=== PATIENT | female | born 1950 | race Hispanic/Latino ===

== ENCOUNTER 2017-01-09 06:18 | Inpatient (IN) | payer MEDICARE, OTHER ==
[2017-01-04 10:15] LABS: Basophils % (Auto) 1.2 % (0.0-1.8); Eosinophils % (Auto) 7.2 % (0.0-4.3); Hematocrit 44.4 % (30.3-42.9); Mean Corpuscular HGB Conc 34 % (30-34); Mean Corpuscular Hemoglobin 33 pg (28-32); Mean Corpuscular Volume 96 fl (79-97); Platelet Count 216 K/mm3 (140-440); Red Blood Count 4.61 M/mm3 (3.65-5.03); Red Cell Distribution Width 13.7 % (13.2-15.2); White Blood Count 6.8 K/mm3 (4.5-11.0)
--- NOTE | 2017-01-04 10:20 | Anesthesia Consultation ---
Anesthesia Consult and Med Hx Date of service: 01/04/17 - Airway Anesthetic Teeth Evaluation: Good, Partials (doesn't come out per patient) ROM Head & Neck: Adequate Mental/Hyoid Distance: Adequate Mallampati Class: Class II Intubation Access Assessment: Probably Good - Pulmonary Exam CTA: Yes - Cardiac Exam Cardiac Exam: RRR - Pre-Operative Health Status ASA Pre-Surgery Classification: ASA3 Proposed Anesthetic Plan: General - Pulmonary Hx Smoking: Yes (former, quit 10 yrs ago, 1ppd x 40 yrs) Hx Asthma: No COPD: No Hx Sleep Apnea: No - Cardiovascular System Hx Hypertension: Yes (EF normal) Hx Heart Attack/AMI: Yes (1998, angio gram negative per patient) - Central Nervous System Hx Seizures: No CVA: No Hx Psychiatric Problems: No - Endocrine Hx Renal Disease: No Hx Non-Insulin Dependent Diabetes: Yes (pre-diabtes, no meds) Hx Thyroid Disease: Yes Hx Hypothyroidism: Yes - Other Systems Hx Alcohol Use: Yes (occas) Hx Cancer: No Hx Obesity: No - Additional Comments Anesthesia Medical History Comments: Patient reports after cataract suregry she felt limp and lethargic. Does not know the cause. Cardiac clearance on chart.
[2017-01-04 10:25] LABS: INR 0.98 (0.87-1.13)
[2017-01-04 10:34] LABS: Anion Gap 18 mmol/L; BUN/Creatinine Ratio 16.25; Blood Urea Nitrogen 13 mg/dL (7-17); Calcium 9.1 mg/dL (8.4-10.2); Carbon Dioxide 26 mmol/L (22-30); Chloride 104.8 mmol/L (98-107); Glucose 66 mg/dL (65-100); Potassium 4.8 mmol/L (3.6-5.0); Sodium 144 mmol/L (137-145)
[~2017-01-09 06:18] MED LIST: ANCEF/STERILE WATER 2 GM/20 ML 2 GM/20 ML SYRINGE IV NR; NACL 0.9% 1000 ML 1,000 ML IV SCH; PEPCID PO NR; VERSED IV NR
[2017-01-09] MEDS ORDERED: ZEMURON IV ONE (07:20)
[2017-01-09] MEDS ORDERED: XYLOCAINE MPF 2% ONE (07:20)
[2017-01-09] MEDS ORDERED: SUBLIMAZE ONE (07:20)
[2017-01-09] MEDS ORDERED: DIPRIVAN 10 MG/ML IV ONE ×2 (07:24→09:15)
[2017-01-09] MEDS ORDERED: PROTAMINE SULFATE ONE (07:33)
[2017-01-09] MEDS ORDERED: NACL 0.9% 250ML 250 ML ONE (07:34)
[2017-01-09] MEDS ORDERED: MARCAINE 0.5% 30 ML INFILTRATI ONE (07:34)
[2017-01-09] MEDS ORDERED: HEPARIN 10,000 UNITS/10 ML ONE (07:34)
--- NOTE | 2017-01-09 08:07 | Anesthesia Day of Surgery ---
Anesthesia Day of Surgery - Day of Surgery Patient Examined: Yes Patient H&P Reviewed: Yes Patient is NPO: Yes
[2017-01-09] MEDS ORDERED: BENADRYL ONE (08:13)
[2017-01-09] MEDS ORDERED: DECADRON ONE (08:13)
--- NOTE | 2017-01-09 08:49 | Admit Criteria Form ---
Admission Criteria Documentation: AMBULATORY SURGERY EXCEPTION CRITERIA Ambulatory Surgery Exception Criteria ( Place 'X' for any and all applicable criteria): Surgery or procedure performed on ambulatory basis may require inpatient stay for[A] ANY ONE of the following(1)(2)(3)(4)(5)(6)(7)(8)(9): [X] I. A preoperative situation, condition, or finding that warrants inpatient stay as indicated by ANY ONE of the following: [] a) Inpatient care needed because of severity of a disease or condition rather than the surgery (eg, severe cardiac or respiratory disease, severe infection) (15) (16 ) (17) (18) [] b) Emergent procedure (eg, angioplasty for acute ischemia)(19) [] c) Complex surgical approach or situation as indicated by ANY ONE of the following(3): [] i) Open approach needed instead of usual endoscopic, transcatheter, or other less invasive procedure [] ii) Difficult approach because of previous operation [] iii) Airway monitoring required after open neck procedures(20)(21) [] iv) Large mass requiring unusually extensive dissection [] v) Additional complicating feature requiring inpatient care (eg, drain management)(22(23): [X] d) Major surgery in a pt with high anesthetic risk as indicated by ANY ONE of the following (2)(3)(5)(7)(8): [X] i) ASA risk class III or higher (severe systemic disease impairing function) [D] [] ii) Advanced age (eg, older than 85 years)(14)(24) [] iii) Symptomatic heart failure(25) [] iv) Symptomatic asthma or COPD(8)(21) [] v) Morbid obesity with hemodynamic or respiratory problems(20)( 21)(26)(27) [] vi) Obstructive sleep apnea(20)(21) [] vii) Former premature infants who are younger than 60 weeks [] viii) High risk for severe postoperative abnormalities (eg, severe postoperative hypocalcemia after parathyroidectomy for severe hyperparathyroidism)(27)( 28) [] ix) Unstable angina(25) [] e) Drug-related risk requiring inpatient stay as indicated by ANY ONE of the following(5)(10)(14)(32)(33) [] i) Procedure requires discontinuing drugs or other therapy (eg , antiarrhythmic medication, antiseizure medication), which necessitates inpatient observation or treatment.(18)(31) [] ii) Major surgery and high risk drug use as indicated by ANY ONE of the following: [] 1) Active abuse of cocaine or similar drug [] 2) Monoamine oxidase inhibitor use [] 3) Other drug identified as posing risk [] f) Inadequate outpatient care situation as indicated by ANY ONE of the following(5)(10)(14)(32)(33) [] i) Patient lives remote from medical facility and procedure has urgent complication potential, and temporary nearby residence cannot be arranged [] ii) Patient will have postprocedure incapacitation and inadequate assistance at home, or alternative level of care cannot be arranged. [] iii) Patient will have long general anesthesia or procedure side effect resolution time, and competent person to stay with patient on first postoperative night at home or alternative level of care cannot be arranged. []iv) Other inadequate outpatient situation that cannot be handled by other means [] II. A perioperative event, condition, or finding that warrants inpatient stay as indicated by ANY ONE of the following (1)(2)(3): [] a) Inadequate physiologic recovery: cardiovascular, respiratory, or hemodynamic status not normal or near preoperative baseline(18) [] b) Hemodynamic instability [] c) Patient not alert with near normal or baseline mental status [] d) Temperature not normal or as expected and not appropriate for outpatient treatment of condition [] e) Ambulatory or appropriate activity level status not yet achieved post procedure [E](34)(35)(36) [] f) Operative site not appropriate (eg, unexpected or excessive drainage or bleeding) [] g) Postoperative effects not resolved or adequately managed (eg, significant pain or vomiting not appropriate for outpatient or next level of care)(10)(12) [] h) Complicating features requiring inpatient care as indicated by ANY ONE of the following(37): [] i) Severe complications of procedure (eg, bowel injury, airway compromise, vascular injury,severe hemorrhage) [] ii) Extensive (eg, dissection far beyond usual scope of procedure ) or prolonged (eg, 120 minutes beyond usual) surgery needed requiring inpatient postoperative care [] iii) Conversion to an open or complex procedure that requires inpatient care (eg, open vs laparoscopic cholecystectomy, abdominal vs vaginal hysterectomy)(38) [] iv) Comorbid condition or test result identified during or post procedure that requires inpatient care (7) [] v) Malignant hyperthermia(30) [] vi) Other complicating feature requiring inpatient care(22)(23) Inpatient stay may be needed until ALL of the following are present (1)(2)(3)(4) (5)(6)(10)(14)(33)(40): []a) Physiologic recovery: cardiovascular, respiratory, and hemodynamic status normal or near preoperative baseline []b) Hemodynamic stability []c) Patient alert, with near normal or baseline mental status []d) Temperature appropriate: patient afebrile or temperature appropriate for outpt treatment of condition []e) Activity level appropriate: ambulatory or appropriate activity level post procedure []f) Operative site appropriate as indicated by ALL of the following: []i) Site dry or with expected drainage []ii) Any blood noted is as expected for procedure. []g) Postoperative effects resolved or managed as indicated by ALL of the following: []i) Pain management appropriate for outpatient (or next level of) care(10) []ii) Minimal nausea and vomiting: if present, successfully treated with oral medication(12) []iii) Headache, dizziness, or drowsiness (if present) are mild. []h) Voiding status acceptable as indicated by ANY ONE of the following: []i) Voiding spontaneously []ii) No voiding but instructions given for follow-up in 6 to 8 hours []iii) Urinary catheter in place, and instructions given for follow-up []i) Complicating features requiring inpatient care manageable at a lower level of care(37) []j) Comorbid conditions manageable at a lower level of care(37) The original [employer] content created by [employer] has been revised. The portions of the content which have been revised are identified through the use of italic text or in bold, and [facility] [employer] has neither reviewed nor approved the modified material. All other unmodified content is copyright [employer]. Please see references footnoted in the original [employer] edition 2016 Admission Criteria Met: Yes
[2017-01-09] MEDS ORDERED: MARCAINE 0.5% INFILTRATI ONE (08:54)
[2017-01-09] MEDS ORDERED: NACL 0.9% IR ONE (08:54)
[2017-01-09] MEDS ORDERED: OMNIPAQUE IR ONE (08:54)
[2017-01-09] MEDS ORDERED: NACL 0.9% 1000 ML IR ONE (08:54)
[2017-01-09] MEDS ORDERED: OMNIPAQUE (240 MG) IV ONE (08:54)
[2017-01-09] MEDS ORDERED: HEPARIN 10,000 UNITS/10 ML 4,000 UNIT in NACL 0.9% 1000 ML 1,000 ML IR ONE (08:54)
[2017-01-09] MEDS ORDERED: ePHEDrine SULFATE ONE (08:55)
[2017-01-09] MEDS ORDERED: NACL 0.9% 1000 ML 2,000 ML ONE (09:38)
[2017-01-09] MEDS ORDERED: NEO SYNEPHRINE/NS Syringe(OR USE) IV ONE (10:00)
[2017-01-09] MEDS ORDERED: HYDROGEN PEROXIDE ONE (10:01)
[2017-01-09] MEDS ORDERED: NORMODYNE IV ONE (10:15)
[2017-01-09] MEDS ORDERED: BLOXIVERZ ONE (10:15)
[2017-01-09] MEDS ORDERED: BREVIBLOC IV ONE (10:15)
[2017-01-09] MEDS ORDERED: ROBINUL ONE (10:15)
[2017-01-09] MEDS ORDERED: ZOFRAN ONE (10:15)
[2017-01-09] MEDS ORDERED: MORPHINE IV PRN ×2 (10:30)
[2017-01-09] MEDS ORDERED: NARCAN 0.4 MG/1 ML IV PRN (10:30)
[2017-01-09] MEDS ORDERED: NORCO 5/325 PO PRN (10:30)
[2017-01-09] MEDS ORDERED: DILAUDID ONE (10:33)
[2017-01-09] MEDS: DILAUDID IV PRN ×3 (10:35→11:05)
--- NOTE | 2017-01-09 10:51 | Operative Report ---
Operative Report Operative Report: Date of Procedure: 01/09/2017 Pre-operative Diagnosis: Penetrating Ulcer with Aortic Pseudoaneurysm Post-operative Diagnosis: Same Procedure(s): 1. Bilateral Ultrasound-Guided Access Common Femoral Arteries 2. Bilateral Femoral Artery Exposure 3. Bilateral Catheters and the Aorta 4. Endovascular Repair of Abdominal Aortic Aneurysm with: 1. Endologix 22 x 80 AFX2 Main Body 5. Radiologic Supervision with Interposition Surgeon: Sherwin Waldrop M.D. Frame Stripper: Omaira Domínguez M.D. Second Frame Stripper: Kevin Pryor PA-C Anesthesia: Gen. Endotracheal Anesthesia EBL: 100 mL Counts: Correct Complications: None Condition: Stable Findings: Successful repair of abdominal aortic pseudoaneurysm with no evidence of endoleak at the completion of the case. Specimen: None Indication: The patient is a 66-year-old female with a history of hypertension who had a CT scan performed for abdominal pain. She was found to have a penetrating ulcer in her distal infrarenal aorta with a 3 cm pseudoaneurysm. Given the size of the pseudoaneurysm and the complaints of pain and tenderness on examination was felt that she would benefit from endovascular repair. She was given the risks, benefits, and alternative procedures and consented to procedure. Description of Procedure: The patient was brought to the operating room and laid in supine position. After general endotracheal anesthesia was achieved with protamine and draped in normal sterile fashion. Ultrasound was used to identify the left common femoral artery and a small stab incision was made. A hemostat was then used to bluntly dissect down to the anterior surface of the left common femoral artery using ultrasound guidance. Then with ultrasound guidance micropuncture technique was used to access the artery and a Bentson wire was advanced into the aorta under fluoroscopy. A 7 [place]e sheath was then placed by Seldinger technique. I didn't identify the right common femoral artery using ultrasound and made a small stab incision. A hemostat was used to bluntly dissect down to the anterior surface of the artery wall using ultrasound. Again using ultrasound guidance; puncture technique was used to enter the right common femoral artery and a Bentson wire was advanced to the aorta under fluoroscopy. The 7 [place]e dilator was then used to dilate the tract and then the pre-close technique was used placing a Perclose device at the 2:00 and 10:00 positions. I then advanced an 8 [place]e sheath by Seldinger technique. At this point the patient was systemically heparinized with 5000 units of heparin IV. A vertebral catheter was advanced over the Bentson in the right groin and then the Bentson wire was exchanged for a Lunderquist wire. The 8 [place]e sheath was removed and the 19 [place]e AFX introducer sheath was advanced to just above the bifurcation using Seldinger technique. We then advanced a snare catheter up the left side and opened the snare in the mid aorta. The 22 x 80 AFX2 bifurcated device was then loaded into the sheath, over the stiff wire and the contralateral wire was advanced into the aorta. The contralateral wire was snared and then pull it on the contralateral side ensuring that the tension was pulled out. The AFX2 bifurcated device was then transferred into the introducer sheath and advanced under fluoroscopy into the distal limbs were above the aortic bifurcation releasing the limbs of the graft. The entire system was then pulled down to the aortic bifurcation and the main body of the graft was deployed by pulling on the control cord handle. The contralateral limb was deployed by pulling the yellow cover from the contralateral wire and then advancing a pigtail catheter [id number] wire into the tip was in contact with the wire-lock. The pigtail catheter was held in place and the contralateral wire was pulled until was released from the wire-lock. The ipsilateral limb was then deployed by pinning the inner core and retracted AFX introducer sheath. The inner core was then removed from the delivery sheath. A Bentson wire was then advanced in the pigtail catheter and the pigtail catheter was removed leaving the wire placed. 8 x 4 balloons were then used, in kissing fashion, at the proximal end of the graft and in the main body. Each balloon was then used in the ipsi and contra limb. The bundles were removed in the pigtail catheter was advanced up the left side. An aortogram was performed and demonstrated the bilateral renal arteries widely patent. The proximal portion of the graft was approximately 3 cm below the level of renal arteries. The graft was widely patent with brisk flow and no evidence of endoleak into the pseudoaneurysm. The Bentson wire was inserted into the pigtail catheter and the catheter was removed. The Lunderquist were on the right was exchanged for a Bentson wire. The delivery sheath was removed from the right femorla artery and the previously placed ProGlide closure devices were used to close the femoral arteriotomy. The 7 [place]e sheath, on the left, was then removed and a ProGlide closure device was then used the close the arteriotomy. Pressure was held on each groin to achieve hemostasis. Once adequate hemostasis had been achieved each groin was anesthetized with Marcaine and closed in a single layer using a 4-0 Chromic in interrupted subcuticular fashion. The skin was then dressed with Dermabond. The patient tolerated the procedure well. All sponge, needle, and instrument counts were correct. The patient was taken to the recovery area in stable condition.
--- NOTE | 2017-01-09 12:34 | Consultation ---
History of Present Illness Consult date: 01/09/17 Requesting physician: JOSELITO PAVON Reason for consult: other (ASCVD s/p AAA Repair) History of present illness: PULMONARY/CCM CONSULT NOTE (Full dictation # [id number]) Please see dictated notes for full details Medications and Allergies Allergies Allergy/AdvReac Type Severity Reaction Status Date / Time latex AdvReac Intermediate Itching Verified 01/09/17 08:10 antihistamines Allergy headache, Uncoded 01/02/17 17:14 weakness, hard to arouse Home Medications Medication Instructions Recorded Confirmed Last Taken Type Cholecalciferol Vit D3 [Vitamin D3] 1,000 unit PO QDAY 01/02/17 01/09/17 History [place]-3 Fatty Acids/Fish Oil [Fish 0 each PO DAILY 01/02/17 01/09/17 01/08/17 History Oil] Thyroid,Pork [Nature-Throid] 32.5 mg PO QDAY 01/02/17 01/09/17 01/08/17 History Enalapril Maleate [Vasotec] 10 mg PO DAILY 01/04/17 01/09/17 01/09/17 History Active Meds: Active Medications Acetaminophen/Hydrocodone Bitart ([place] 5/325) 2 each PO Q6H PRN PRN Reason: Pain, Moderate (4-6) Cholecalciferol (Vitamin D3) 1,000 unit PO QDAY SAMSON Clopidogrel Bisulfate (Plavix) 75 mg PO QDAY SAMSON Enoxaparin Sodium (Lovenox) 40 mg SUB-Q QDAY SAMSON Famotidine (Pepcid) 20 mg PO PREOP NR Stop: 01/09/17 23:59 Last Admin: 01/09/17 06:45 Dose: 20 mg Hydromorphone HCl (Dilaudid) 0.5 mg IV Q10MIN PRN PRN Reason: Pain , Severe (7-10) Stop: 01/12/17 10:52 Last Admin: 01/09/17 11:05 Dose: 0.5 mg Sodium Chloride (Nacl 0.9% 1000 Ml) 1,000 mls @ 42 mls/hr IV DIRECT SAMSON Last Admin: 01/09/17 06:51 Dose: 42 mls/hr Cefazolin Sodium (Ancef/Ns 1 Gm/50 Ml) 1 gm in 50 mls @ 100 mls/hr IV Q8H [facility] Stop: 01/10/17 00:29 Sodium Chloride (Nacl 0.9% 1000 Ml) 1,000 mls @ 75 mls/hr IV DIRECT SAMSON Stop: 01/10/17 05:50 Lisinopril (Zestril) 10 mg PO QDAY [facility] Midazolam HCl (Versed) 2 mg IV PREOP NR Stop: 01/09/17 23:59 Last Admin: 01/09/17 07:30 Dose: 2 mg Morphine Sulfate (Morphine) 2 mg IV Q4H PRN PRN Reason: Pain, Moderate (4-6) Morphine Sulfate (Morphine) 4 mg IV Q4H PRN PRN Reason: Pain , Severe (7-10) Naloxone HCl (Narcan 0.4 Mg/1 Ml) 0.1 mg IV Q2MIN PRN PRN Reason: Res Rate </= 8 or 02 SAT < 92% Thyroid (Thyroid) 30 mg PO DAILY@0600 [facility] Physical Examination Vital signs: Vital Signs Temp Pulse Resp BP 97.5 F L 60 16 160/90 01/04/17 09:25 01/04/17 09:25 01/04/17 09:25 01/04/17 09:25 Results - Laboratory Findings CBC and BMP: 01/09/17 14:37 01/04/17 09:10 PT/INR, D-dimer PT 12.9 Sec. (12.2-14.9) 01/04/17 09:35 INR 0.98 (0.87-1.13) 01/04/17 09:35 Abnormal lab findings: Abnormal Labs 12/29/16 12/31/16 01/02/17 12:36 07:06 00:38 Hgb Hct MCH Lymph % (Auto) [place] % (Auto) Eos % (Auto) Eos # POC Glucose 294 H 135 H 150 H 01/02/17 01/04/17 05:36 09:35 Hgb 15.0 H Hct 44.4 H MCH 33 H Lymph % (Auto) 37.7 H [place] % (Auto) 7.4 H Eos % (Auto) 7.2 H Eos # 0.5 H POC Glucose 135 H
--- NOTE | 2017-01-09 12:49 | Post Anesthesia Evaluation ---
- Post Anesthesia Evaluation Patient Participated: Yes Airway Patent: Yes Stable Respiratory Function: Yes Nausea/Vomiting: No Temp > 96.8F: Yes Pain Manageable: Yes Adequeate Hydration: Yes Anesthesia Complications: No Block Receding Appropriately: Not Applicable Patient on Ventilator: No
[2017-01-09] MEDS: NACL 0.9% 1000 ML 1,000 ML IV SCH ×2 (13:38→17:44)
[2017-01-09 14:54] LABS: Hematocrit 34.9 % (30.3-42.9); Hemoglobin 11.6 gm/dl (10.1-14.3); Mean Corpuscular HGB Conc 33 % (30-34); Mean Corpuscular Hemoglobin 32 pg (28-32); Mean Corpuscular Volume 97 fl (79-97); Platelet Count 151 K/mm3 (140-440); Red Blood Count 3.61 M/mm3 (3.65-5.03); Red Cell Distribution Width 13.6 % (13.2-15.2)
[2017-01-09] MEDS ORDERED: PROAIR IH PRN (15:03)
[2017-01-09] MEDS ORDERED: PROVENTIL IH PRN (15:13)
[2017-01-09] MEDS: ANCEF/NS 1 GM/50 ML 1 GM/50 ML BAG IV SCH (15:39)
[2017-01-09] MEDS: LOVENOX SUB-Q SCH (15:45)
[2017-01-09 16:03] LABS: Anion Gap 17 mmol/L; BUN/Creatinine Ratio 17.77; Blood Urea Nitrogen 16 mg/dL (7-17); Calcium 7.3 mg/dL (8.4-10.2); Carbon Dioxide 23 mmol/L (22-30); Chloride 107.8 mmol/L (98-107); Glucose 146 mg/dL (65-100); Potassium 4.3 mmol/L (3.6-5.0); Sodium 143 mmol/L (137-145)
[2017-01-09 19:40] LABS: Hematocrit 35.8 % (30.3-42.9); Hemoglobin 11.8 gm/dl (10.1-14.3); Mean Corpuscular HGB Conc 33 % (30-34); Mean Corpuscular Hemoglobin 32 pg (28-32); Mean Corpuscular Volume 96 fl (79-97); Red Blood Count 3.74 M/mm3 (3.65-5.03)
[2017-01-09 19:54] LABS: Platelet Count 161 K/mm3 (140-440)
[2017-01-10] MEDS: ANCEF/NS 1 GM/50 ML 1 GM/50 ML BAG IV SCH (01:24)
[2017-01-10 04:46] LABS: Hematocrit 34.4 % (30.3-42.9); Hemoglobin 11.6 gm/dl (10.1-14.3)
--- NOTE | 2017-01-10 04:58 | Consultation ---
PULMONARY CRITICAL CARE EVALUATION NOTE CONSULTING PHYSICIAN: Dr. Sherwin Waldrop. REASON FOR CONSULTATION: History of atherosclerotic vascular disease, status post repair of a penetrating ulcer with an aortic pseudoaneurysm. Need for ICU evaluation and monitoring postop. CHIEF COMPLAINT AND HISTORY OF PRESENT ILLNESS: As follows; the patient is a 66-year-old female with past medical history significant in this context, I guess for a diagnosis of coronary artery disease. She tells me also a history of hypertension, stated that she had a screening exam and was found to have aortic aneurysm essentially. She came in electively for repair today. She had bilateral ultrasound-guided assessment of the common femoral arteries, bilateral femoral artery exposure, bilateral catheters ____, endovascular repair of abdominal aortic aneurysm with Endologix 22 x 80 AFX2 main body repair and finally radiologic supervision with interposition. The procedure went well. Estimated blood loss about 100 mL and postop she was brought into the intensive care unit. She was relatively hypotensive, but was not on any vasopressors at the time I saw her. Her mean arterial blood pressures earlier had been about 53 mmHg. When I stopped by to see her, she was resting peacefully in bed. Denied any acute chest pain. She does have a 10+ pack year remote tobacco smoking history. She denies any history of obstructive sleep apnea or sleep disordered breathing, but states that of late she has been noticing that she started to snore a whole lot. She denies any significant weight loss or gain in the preceding few weeks to months. Denies any palpitations. Denies any diagnosis of COPD. She is not on any inhalers. She does admit to a history of allergies that she describes as seasonal allergies. That really is as much of the history of presentation as I have. She was comfortable and denied any acute pain. PAST MEDICAL HISTORY: Again, significant amongst other things for a diagnosis of hypertension. She has a history of coronary artery disease. She had denied a history of diabetes to me, but her records mention that she is pre-diabetic. She has a history of hypothyroidism and the tobacco use disorder was a remote history. PAST SURGICAL HISTORY: She said she has had eye surgery, cataract surgery and now the AAA repair. MEDICATIONS: She was on at the time I stopped by to see her, according to the medication administration record included the following: [place] 5/325 two tablets p.o. q.6 hours p.r.n. moderate pain, Ancef 1 gram IV q. 8 hours, vitamin D3 1000 units p.o. daily, Plavix 75 mg p.o. daily, Lovenox 40 mg subcutaneous daily, Pepcid 20 mg p.o. she received that preop. Dilaudid 0.5 mg IV q. 10 minutes p.r.n. severe pain that was used intraoperatively, lisinopril 10 mg p.o. daily, Versed 2 mg IV, was received for preop, morphine sulfate 4 mg IV q. 4 hours p.r.n. severe pain. She is on thyroid replacement therapy 30 mg p.o. daily. I believe that is home medication. ALLERGIES: LATEX AND ANTIHISTAMINE. Nature of this allergy is unknown. DIET: Slightly obese. Denies significant weight loss or gain in the preceding few weeks to months. FAMILY AND SOCIAL HISTORY: Lives in the community. 10+ pack year remote tobacco smoking history. Drinks alcohol occasionally. Denies current tobacco, quit 10 years ago, or illicit drug use or abuse. Apparently she did have a 30+ pack year remote smoking history. REVIEW OF SYSTEMS: No loss of consciousness. No new-onset seizures. No new-onset focal weakness. No gross hematochezia or melena. No gross hematuria or dysuria. No hematemesis. No hemoptysis. No palpitations. Complete 13-system review of systems obtained. Pertinent positives and/or negatives as in body of history above, otherwise they are noncontributory. PHYSICAL EXAMINATION: VITAL SIGNS: At presentation, she was afebrile, temperature 98.0 degrees Fahrenheit with a pulse of 62, respiratory rate of 20, blood pressure 135/55, oxygen sats were 97%, inspired oxygen concentration was not recorded. Her pulse has been as low as 48, but asymptomatic. Arterial line blood pressure most recent 97/42, with a MAP of 60. HEAD, EYES, EARS, NOSE AND THROAT: Pupils are equal, round, about 3-4 mm, reactive to light. Extraocular muscle movements are intact. Oropharynx is a Mallampati #2 oropharynx. No significant posterior oropharyngeal erythema. Grossly, no palpable lymph nodes in the supraclavicular or submandibular lymph node chains. LUNGS: Auscultation of both lung ayala significant only for diminished bilateral breath sounds, diminished basilar air entry. No wheezing. HEART: Heart sounds 1 and 2 are heard at the time of my evaluation, regular rate and rhythm. ABDOMEN: Soft, full, bowel sounds are positive, not tender. EXTREMITIES: Without overt digital clubbing, cyanosis, or pedal edema. NEUROLOGIC: The exam was grossly nonfocal. LABORATORY DATA: For my review are as follows: White cell count 9000, hemoglobin 11.6, hematocrit 34.9, platelet count 151. On the second, her INR was 0.98. Her serum sodium was 144, potassium 4.8, chloride 105, bicarbonate 26, BUN 13, creatinine 0.8 and a glucose of 66. No microbiology studies. I do not have any radiographic studies for review. ASSESSMENT AND PLAN: We have an elderly lady status post successful endovascular repair of pseudoaneurysm of the aorta and actually doing well. She is currently on about 2 liters nasal cannula. We will wean oxygen to keep sats greater than or equal to over 94%. Aspiration precautions will be maintained. Oral nutrition will be the feeding modality of choice. I will continue the Pepcid as gastrointestinal prophylaxis. She is appropriately on DVT prophylaxis. I will hold her home antihypertensive medications while she is on the hypotensive phase. We will follow her H and H closely. Considering she remains on the low side, I will order another set of CBC for later tonight at about 2100 hours. Aspiration precautions will be maintained. Bronchodilators will be ordered on a p.r.n. basis. We will target mean arterial pressures greater than or equal to about 60-65 mmHg. I will repeat a BMP now to see if there is any evidence of significant intravascular volume depletion. Volume resuscitation will obviously be given if mean arterial pressures fall below 60 and she will be started on vasopressors if she was nonresponsive to that. Again she will be on GI. She is on DVT prophylaxis. Flu and pneumonia vaccination will be per protocol. Thank you very much for the consult Dr. Waldrop. We will follow along. We will make further recommendations as the picture progresses/becomes clearer. JOB# [id number] DAGO/DEL
[2017-01-10] MEDS: THYROID PO SCH ×2 (06:19→06:22)
[2017-01-10] MEDS ORDERED: THYROID PORK 32.5 MG PO SCH (10:00)
[2017-01-10] MEDS ORDERED: PLAVIX PO SCH (10:00)
[2017-01-10] MEDS ORDERED: NON-FORMULARY (Enalapril Maleate [Vasotec] 10 MG) PO SCH (10:00)
[2017-01-10] MEDS ORDERED: VITAMIN D3 PO SCH (10:00)
[2017-01-10] MEDS ORDERED: PEPCID PO SCH (10:00)
[2017-01-10] MEDS: LOVENOX SUB-Q SCH (10:43)
[2017-01-10] MEDS ORDERED: ZESTRIL PO SCH (11:00)
--- NOTE | 2017-01-10 14:21 | Progress Note ---
Assessment and Plan Increase act, if tolerates then d/c home later this afternoon. - Patient Problems (1) Pseudoaneurysm of aorta Current Visit: Yes Status: Acute Subjective Date of service: 01/10/17 Interval history: Pt c/o min sleeping last pm secondary to alarms and lights. She c/o increased anxiety this am (she attributes to lack of sleep). She denies pain at present. Min ambulation. Tolerates diet. Objective - Constitutional Vitals: Vital Signs - 12hr 01/10/17 01/10/17 01/10/17 02:21 02:31 02:41 Temperature Pulse Rate 50 L 48 L 52 L Respiratory 12 13 11 L Rate Blood Pressure 102/37 102/37 102/37 O2 Sat by Pulse 98 97 97 Oximetry 01/10/17 01/10/17 01/10/17 02:51 03:00 03:11 Temperature Pulse Rate 62 55 L 68 Respiratory 16 14 15 Rate Blood Pressure 102/37 106/35 106/35 O2 Sat by Pulse 96 95 96 Oximetry 01/10/17 01/10/17 01/10/17 03:21 03:31 03:41 Temperature Pulse Rate 52 L 55 L 57 L Respiratory 13 14 14 Rate Blood Pressure 106/35 106/35 106/35 O2 Sat by Pulse 96 97 96 Oximetry 01/10/17 01/10/17 01/10/17 03:51 04:00 04:11 Temperature 98.1 F Pulse Rate 53 L 45 L 51 L Respiratory 14 15 13 Rate Blood Pressure 106/35 110/37 110/37 O2 Sat by Pulse 97 98 97 Oximetry 01/10/17 01/10/17 01/10/17 04:21 04:31 04:41 Temperature Pulse Rate 56 L 54 L 49 L Respiratory 19 15 11 L Rate Blood Pressure 110/37 110/37 110/37 O2 Sat by Pulse 97 96 96 Oximetry 01/10/17 01/10/17 01/10/17 04:51 05:00 05:11 Temperature Pulse Rate 49 L 51 L 51 L Respiratory 10 L 15 13 Rate Blood Pressure 110/37 97/34 97/34 O2 Sat by Pulse 96 96 94 Oximetry 01/10/17 01/10/17 01/10/17 05:21 05:31 05:41 Temperature Pulse Rate 51 L 51 L 54 L Respiratory 14 14 15 Rate Blood Pressure 97/34 97/34 97/34 O2 Sat by Pulse 96 94 94 Oximetry 01/10/17 01/10/17 01/10/17 05:51 06:00 06:11 Temperature Pulse Rate 50 L 48 L 58 L Respiratory 16 16 14 Rate Blood Pressure 97/34 121/49 121/49 O2 Sat by Pulse 96 96 96 Oximetry 01/10/17 01/10/17 01/10/17 06:21 07:00 08:00 Temperature 98.1 F Pulse Rate 55 L 52 L 57 L Respiratory 16 17 16 Rate Blood Pressure 121/49 119/50 125/61 O2 Sat by Pulse 97 98 95 Oximetry 01/10/17 01/10/17 01/10/17 09:01 09:40 10:00 Temperature Pulse Rate 64 64 Respiratory 19 16 Rate Blood Pressure 155/38 146/62 O2 Sat by Pulse 97 94 Oximetry 01/10/17 01/10/17 01/10/17 10:42 11:01 12:00 Temperature 97.5 F L Pulse Rate 58 L 54 L 57 L Respiratory 18 15 Rate Blood Pressure 146/62 146/62 163/59 O2 Sat by Pulse 95 Oximetry General appearance: Present: no acute distress - EENT Eyes: EOM intact ENT: hearing intact - Neck Neck: supple - Respiratory Respiratory effort: normal Extremities: no ischemia, normal temperature - Gastrointestinal General gastrointestinal: Present: soft, non-tender - Neurologic Neurologic: no focal deficits - Psychiatric Psychiatric: intact judgment & insight, cooperative - Labs CBC & Chem 7: 01/10/17 04:00 01/09/17 15:30 Labs: Abnormal lab results 01/09/17 01/09/17 01/09/17 Range/Units 14:37 15:30 19:18 WBC 13.0 H (4.5-11.0) K/mm3 RBC 3.61 L (3.65-5.03) M/mm3 Chloride 107.8 H (98-107) mmol/L Glucose 146 H (65-100) mg/dL Calcium 7.3 L (8.4-10.2) mg/dL
--- NOTE | 2017-01-10 15:46 | Progress Note ---
Assessment and Plan - Patient Problems (1) Pseudoaneurysm of aorta Status: Acute Plan to address problem: - s/p repair - no acute complications - BP's well controlled - clinically stable ...d/c planning per vascular team ...re-evaluate in am & prn Subjective Date of service: 01/10/17 Principal diagnosis: Artherosclerotic Vascular disease s/p Abdominal Aortic Aneurysm repair Interval history: Seen and examined at bedside; 24 hour events reviewed; nursing and respiratory care staff consulted; no adverse overnight events reported to me; resting peacefully; looks and feels better; denies acute chest pains or increased SOB; no gross bleeding and H&H holding Objective Vital Signs - 12hr 01/10/17 01/10/17 01/10/17 03:51 04:00 04:11 Temperature 98.1 F Pulse Rate 53 L 45 L 51 L Respiratory 14 15 13 Rate Blood Pressure 106/35 110/37 110/37 O2 Sat by Pulse 97 98 97 Oximetry 01/10/17 01/10/17 01/10/17 04:21 04:31 04:41 Temperature Pulse Rate 56 L 54 L 49 L Respiratory 19 15 11 L Rate Blood Pressure 110/37 110/37 110/37 O2 Sat by Pulse 97 96 96 Oximetry 01/10/17 01/10/17 01/10/17 04:51 05:00 05:11 Temperature Pulse Rate 49 L 51 L 51 L Respiratory 10 L 15 13 Rate Blood Pressure 110/37 97/34 97/34 O2 Sat by Pulse 96 96 94 Oximetry 01/10/17 01/10/17 01/10/17 05:21 05:31 05:41 Temperature Pulse Rate 51 L 51 L 54 L Respiratory 14 14 15 Rate Blood Pressure 97/34 97/34 97/34 O2 Sat by Pulse 96 94 94 Oximetry 01/10/17 01/10/17 01/10/17 05:51 06:00 06:11 Temperature Pulse Rate 50 L 48 L 58 L Respiratory 16 16 14 Rate Blood Pressure 97/34 121/49 121/49 O2 Sat by Pulse 96 96 96 Oximetry 01/10/17 01/10/17 01/10/17 06:21 07:00 08:00 Temperature 98.1 F Pulse Rate 55 L 52 L 57 L Respiratory 16 17 16 Rate Blood Pressure 121/49 119/50 125/61 O2 Sat by Pulse 97 98 95 Oximetry 01/10/17 01/10/17 01/10/17 09:01 09:40 10:00 Temperature Pulse Rate 64 64 Respiratory 19 16 Rate Blood Pressure 155/38 146/62 O2 Sat by Pulse 97 94 Oximetry 01/10/17 01/10/17 01/10/17 10:42 11:01 12:00 Temperature 97.5 F L Pulse Rate 58 L 54 L 57 L Respiratory 18 15 Rate Blood Pressure 146/62 146/62 163/59 O2 Sat by Pulse 95 Oximetry 01/10/17 01/10/17 13:00 14:00 Temperature Pulse Rate 62 59 L Respiratory 18 18 Rate Blood Pressure 124/43 115/49 O2 Sat by Pulse 91 96 Oximetry Constitutional: no acute distress, alert Eyes: non-icteric ENT: oropharynx moist Neck: supple, no lymphadenopathy Effort: normal Ascultation: Bilateral: clear Cardiovascular: regular rate and rhythm Gastrointestinal: normoactive bowel sounds, soft, non-tender, non-distended Integumentary: normal Extremities: no cyanosis, no edema, pink and warm, pulses normal, no ischemia or petechiae Neurologic: normal mental status, non-focal exam, pupils equal and round, motor strength normal and Psychiatric: mood appropriate, affect normal CBC and BMP: 01/10/17 04:00 01/09/17 15:30 ABG, PT/INR, D-dimer: PT/INR, D-dimer PT 12.9 Sec. (12.2-14.9) 01/04/17 09:35 INR 0.98 (0.87-1.13) 01/04/17 09:35 Abnormal lab findings: Abnormal Labs 12/29/16 12/31/16 01/02/17 12:36 07:06 00:38 WBC RBC Hgb Hct MCH Lymph % (Auto) [place] % (Auto) Eos % (Auto) Eos # Chloride Glucose POC Glucose 294 H 135 H 150 H Calcium 01/02/17 01/04/17 01/09/17 05:36 09:35 14:37 WBC RBC 3.61 L Hgb 15.0 H Hct 44.4 H MCH 33 H Lymph % (Auto) 37.7 H [place] % (Auto) 7.4 H Eos % (Auto) 7.2 H Eos # 0.5 H Chloride Glucose POC Glucose 135 H Calcium 01/09/17 01/09/17 15:30 19:18 WBC 13.0 H RBC Hgb Hct MCH Lymph % (Auto) [place] % (Auto) Eos % (Auto) Eos # Chloride 107.8 H Glucose 146 H POC Glucose Calcium 7.3 L
--- NOTE | 2017-01-10 16:35 | Short Stay Summary ---
Short Stay Documentation Date of service: 01/10/17 - History H&P: obtained from office - Allergies and Medications Current Medications: Allergies latex Adverse Reaction (Intermediate, Verified 01/09/17 08:10) Itching antihistamines Allergy (Uncoded 01/02/17 17:14) headache, weakness, hard to arouse Home Medications Medication Instructions Recorded Confirmed Last Taken Type Cholecalciferol Vit D3 [Vitamin D3] 1,000 unit PO QDAY 01/02/17 01/09/17 History [place]-3 Fatty Acids/Fish Oil [Fish 0 each PO DAILY 01/02/17 01/09/17 01/08/17 History Oil] Thyroid,Pork [Nature-Throid] 32.5 mg PO QDAY 01/02/17 01/09/17 01/08/17 History Enalapril Maleate [Vasotec] 10 mg PO DAILY 01/04/17 01/09/17 01/09/17 History Active Medications Acetaminophen/Hydrocodone Bitart ([place] 5/325) 2 each PO Q6H PRN PRN Reason: Pain, Moderate (4-6) Last Admin: 01/09/17 15:39 Dose: 2 each Albuterol (Proventil) 2.5 mg IH Q4HRT PRN PRN Reason: Shortness Of Breath Cholecalciferol (Vitamin D3) 1,000 unit PO QDAY [facility] Last Admin: 01/10/17 10:42 Dose: 1,000 unit Clopidogrel Bisulfate (Plavix) 75 mg PO QDAY [facility] Last Admin: 01/10/17 10:41 Dose: 75 mg Enoxaparin Sodium (Lovenox) 40 mg SUB-Q QDAY [facility] Last Admin: 01/10/17 10:43 Dose: 40 mg Famotidine (Pepcid) 20 mg PO QDAY [facility] Last Admin: 01/10/17 10:42 Dose: 20 mg Hydromorphone HCl (Dilaudid) 0.5 mg IV Q10MIN PRN PRN Reason: Pain , Severe (7-10) Stop: 01/12/17 10:52 Last Admin: 01/09/17 11:05 Dose: 0.5 mg Sodium Chloride (Nacl 0.9% 1000 Ml) 1,000 mls @ 42 mls/hr IV DIRECT [facility] Last Admin: 01/09/17 06:51 Dose: 42 mls/hr Lisinopril (Zestril) 10 mg PO QDAY [facility] Last Admin: 01/10/17 10:42 Dose: 10 mg Morphine Sulfate (Morphine) 2 mg IV Q4H PRN PRN Reason: Pain, Moderate (4-6) Morphine Sulfate (Morphine) 4 mg IV Q4H PRN PRN Reason: Pain , Severe (7-10) Naloxone HCl (Narcan 0.4 Mg/1 Ml) 0.1 mg IV Q2MIN PRN PRN Reason: Res Rate </= 8 or 02 SAT < 92% Thyroid (Thyroid) 30 mg PO DAILY@0600 [facility] Last Admin: 01/10/17 06:22 Dose: Not Given - Physical exam Extremities: no ischemia, normal temperature - Brief post op/procedure progress note Procedure: Operative Report Operative Report: Date of Procedure: 01/09/2017 Pre-operative Diagnosis: Penetrating Ulcer with Aortic Pseudoaneurysm Post-operative Diagnosis: Same Procedure(s): 1. Bilateral Ultrasound-Guided Access Common Femoral Arteries 2. Bilateral Femoral Artery Exposure 3. Bilateral Catheters and the Aorta 4. Endovascular Repair of Abdominal Aortic Aneurysm with: 1. Endologix 22 x 80 AFX2 Main Body 5. Radiologic Supervision with Interposition Surgeon: Sherwin Waldrop M.D. Manager School: [employer]maira Domínguez M.D. Second Manager School: Kevin Pryor PA-C Anesthesia: Gen. Endotracheal Anesthesia EBL: 100 mL Counts: Correct Complications: None Condition: Stable Findings: Successful repair of abdominal aortic pseudoaneurysm with no evidence of endoleak at the completion of the case. Specimen: None Indication: The patient is a 66-year-old female with a history of hypertension who had a CT scan performed for abdominal pain. She was found to have a penetrating ulcer in her distal infrarenal aorta with a 3 cm pseudoaneurysm. Given the size of the pseudoaneurysm and the complaints of pain and tenderness on examination was felt that she would benefit from endovascular repair. She was given the risks, benefits, and alternative procedures and consented to procedure. - Disposition Condition at discharge: Stable Disposition: DC-01 TO HOME OR SELFCARE - Discharge Diagnoses (1) Pseudoaneurysm of aorta Status: Acute Short Stay Discharge Plan Activity: advance as tolerated Weight Bearing Status: Weight Bear as Tolerated Diet: regular Wound: keep clean and dry Follow up with: SHERWIN WALDROP MD [Staff Physician] - 14 Days Prescriptions: Clopidogrel [Plavix] 75 mg PO QDAY #30 tablet Clopidogrel Bisulfate [Plavix] 75 mg PO DAILY #30 tablet HYDROcodone/APAP 5-325 [[place] 5/325] 1 each PO Q6HR PRN #50 tablet PRN Reason: Pain
[2017-01-10 17:35] VITALS: BP 154/51
== END 2017-01-10 17:20 | disposition home or self-care (01) | DRG 269 ==
LOC: 3A 06:18 → CC1 11:11
PROVIDERS: ADMIT Surgery Vascular Surgery; ATTEND Surgery Vascular Surgery
PROC: 04V03D6 (ICD-10-PCS; principal; 2017-01-09)
DX: I71.4 Abdominal aortic aneurysm, without rupture (principal); I10 Essential (primary) hypertension; I25.10 Atherosclerotic heart disease of native coronary artery without angina pectoris; E03.9 Hypothyroidism, unspecified; F17.200 Nicotine dependence, unspecified, uncomplicated; Z91.040 Latex allergy status; Z83.3 Family history of diabetes mellitus; I25.2 Old myocardial infarction; Z72.89 Other problems related to lifestyle
CPT/HCPCS: 36415; 75952; 80048; 82962; 85014; 85018; 85025; 85027; 85610; 86850; 86900; 86901; 94760; C1725; C1760; C1768; C1769; C1887; C1894; J0690; J1100; J1170; J1200; J1644; J1650; J2250; J2370; J2405; J2704; J2710; J2720; J3010; J3246; J7030; J7050; Q9966

== ENCOUNTER 2017-01-23 08:09 | Outpatient (CLI) | payer MEDICARE, OTHER ==
--- NOTE | 2017-01-23 10:40 | Cat Scan Report ---
CT ANGIO CHEST HISTORY: Atherosclerosis of the aorta. TECHNIQUE: Helical CT following IV contrast and 1.25 mm intervals. Sagittal and coronal reformatted images. Rotational MIP images. FINDINGS: The thoracic aorta is normal caliber throughout. There is are a few partially calcified plaques in the aortic arch. No evidence for aneurysm, dissection or stenosis. The ascending aorta measures 3.2 cm. The aortic arch measures 2.5 cm. The descending thoracic aorta measures 2.3 cm. Central pulmonary arteries are clear. No large pulmonary embolus. The thyroid gland, tracheobronchial tree, esophagus, heart and pericardium are within normal limits. Small hiatal hernia is noted. The lungs are clear. Minimal centrilobular emphysematous changes are identified in the upper lobes. 1 cm calcified granuloma in the right upper lobe is also noted. No pleural effusion or pneumothorax. The bony structures are intact. No suspicious bony lesion or fracture. IMPRESSION: Essentially normal CTA of the chest. There are minimal atherosclerotic calcifications in the aortic arch. No aneurysm, stenosis or dissection.
--- NOTE | 2017-01-23 11:10 | Cat Scan Report ---
CT ANGIOGRAM ABDOMEN AND PELVIS HISTORY: Abdominal aortic aneurysm without rupture. TECHNIQUE: Helical CT following IV contrast and 1.25 mm intervals. Sagittal and coronal reformatted images. Rotational MIP images. COMPARISON: None. FINDINGS: An aortobiiliac stent has been previously placed. The dilatation of the infrarenal aorta measures 3.0 cm on image 272, series 2. The graft is widely patent. 2 endoleaks are suspected. Type IA endoleak is suspected near the proximal edge of the graft. A type IB endoleak is suspected in the limb leading to the right common iliac artery. Please correlate with the images. The celiac axis, SMA, dual right renal arteries and single left renal artery are patent with less than 20% stenosis. The origin of the DELL is occluded. The iliac systems are patent bilaterally with less than 20% stenosis. The liver, biliary system, pancreas, spleen, adrenal glands and bowel loops are unremarkable. Uterus and adnexa are within normal limits. Normal bladder. There is a perfusion defect measuring 3 x 3 cm at the inferior pole of the left kidney which appears to represent a focal renal infarct. The right kidney is unremarkable. Impression: Infrarenal AAA measures maximum diameter of 3.0 cm. Two type I endoleaks are suspected from the proximal graft and distal limb leading to the right common iliac artery. Perfusion defect at the inferior pole left kidney concerning for renal infarct.
== END 2017-01-23 08:10 | disposition home or self-care (01) ==
LOC: CT 08:09
PROVIDERS: ATTEND Surgery Vascular Surgery
DX: I71.4 Abdominal aortic aneurysm, without rupture (principal); I70.0 Atherosclerosis of aorta; K44.9 Diaphragmatic hernia without obstruction or gangrene; J43.9 Emphysema, unspecified; J84.10 Pulmonary fibrosis, unspecified; M79.672 Pain in left foot; Z87.891 Personal history of nicotine dependence
CPT/HCPCS: 36415; 71275; 74174; 82565; 84520; Q9967